=== PATIENT | female | born 2000 | race Caucasian/White ===

== ENCOUNTER 2021-02-26 12:37 | Emergency (ER) | payer OTHER ==
[~2021-02-26 12:37] MED LIST: COLACE 100MG C100 MG PO; FLINTSTONES1 EAC1 PO; IBUPROFEN600 MG PO; LORTAB 5-325 M1 EACH PO; PRENATAL FORMU1 EAC2 PO; REGLAN10 MG PO; TUMS ULTRA400 MG PO; ZOFRAN4 MG PO
[2021-02-26 13:39] LABS: RED BLOOD COUNT 5.56 M/UL (4.00-5.10); WHITE BLOOD COUNT 4.1 K/UL (4.5-11.0)
[2021-02-26 13:57] LABS: BUN/CREATININE RATIO 19 (0-10)
[2021-02-26] MEDS ORDERED: PHENERGAN 12.12.5 MG PR (16:32)
== END 2021-02-26 16:30 | disposition home or self-care (01) ==
LOC: ER1 12:37
PROVIDERS: Physician Assistant
DX: O21.0 Mild hyperemesis gravidarum (principal); Z79.899 Other long term (current) drug therapy; Z3A.01 Less than 8 weeks gestation of pregnancy
CPT/HCPCS: 80053; 81001; 85025; 96374; 99284; J2550; J7030

== ENCOUNTER 2021-03-02 12:22 | Observation (INO) | payer OTHER ==
[~2021-03-02] VITALS: Ht 154.9 cm; Wt 61.4 kg
[~2021-03-02 12:22] MED LIST changes: +PHENERGAN 12.12.5 MG PR
--- NOTE | 2021-03-02 16:27 | NUR ---
03/02/21 1620 CO NAUSEA MEDS GIVEN ORDERED. SMALL AMOUNT OF GREEN EMESIS NOTED
[2021-03-03] MEDS ORDERED: PHENERGAN 25 MG25 M1 PO (16:31)
[2021-03-03] MEDS ORDERED: TRANSDERM-SCOP1 EACH TOP (16:31)
[2021-03-03] MEDS ORDERED: PROTONIX 40 MG40 M1 PO (16:31)
[2021-03-03] MEDS ORDERED: PHENERGAN 12.12.5 MG PR (16:31)
[2021-03-03] MEDS ORDERED: ZOFRAN ODT 4 MG4 MG SL (16:31)
== END 2021-03-03 18:35 | disposition home or self-care (01) ==
LOC: MED SURG 4 12:22
PROVIDERS: ADMIT Obstetrics & Gynecology
DX: O21.1 Hyperemesis gravidarum with metabolic disturbance (principal); R63.4 Abnormal weight loss; Z20.822 Contact with and (suspected) exposure to COVID-19; Z3A.01 Less than 8 weeks gestation of pregnancy; Z88.0 Allergy status to penicillin
CPT/HCPCS: 96374; 96375; C9113; G0378; G0379; J2405; J2550; J7120; U0002

== ENCOUNTER 2021-03-20 09:36 | Inpatient (IN) | payer OTHER ==
[~2021-03-20] VITALS: Ht 154.9 cm; Wt 68.0 kg
[~2021-03-20 09:36] MED LIST changes: +PHENERGAN 25 MG25 M1 PO; +PROTONIX 40 MG40 M1 PO; +TRANSDERM-SCOP1 EACH TOP; +ZOFRAN ODT 4 MG4 MG SL
[2021-03-20 14:35] LABS: RED BLOOD COUNT 5.3 M/UL (4.00-5.10); WHITE BLOOD COUNT 10.9 K/UL (4.5-11.0)
[2021-03-20 14:59] LABS: BUN/CREATININE RATIO 21 (0-10)
[2021-03-21] MEDS ORDERED: ZOFRAN ODT 4 MG4 MG PO (12:42)
== END 2021-03-21 19:07 | disposition home or self-care (01) | DRG 832 ==
LOC: ER1 09:36 → CDU 17:40 → M/S 20:45
PROVIDERS: Emergency Medicine; ADMIT Obstetrics & Gynecology
DX: O21.1 Hyperemesis gravidarum with metabolic disturbance (principal); O23.41 Unspecified infection of urinary tract in pregnancy, first trimester; Z3A.09 9 weeks gestation of pregnancy; O99.611 Diseases of the digestive system complicating pregnancy, first trimester; K80.20 Calculus of gallbladder without cholecystitis without obstruction; O36.5910 Maternal care for other known or suspected poor fetal growth, first trimester, not applicable or unspecified; G43.909 Migraine, unspecified, not intractable, without status migrainosus; O99.351 Diseases of the nervous system complicating pregnancy, first trimester; R63.4 Abnormal weight loss; Z20.822 Contact with and (suspected) exposure to COVID-19; Z88.0 Allergy status to penicillin
CPT/HCPCS: 0240U; 76705; 80053; 81001; 85025; 87086; 96374; 96375; 99285; C9113; J0696; J2405; J2550; J7030

== ENCOUNTER 2021-03-30 17:21 | Inpatient (IN) | payer OTHER ==
[~2021-03-30] VITALS: Ht 154.9 cm; Wt 58.5 kg
[~2021-03-30 17:21] MED LIST changes: +ZOFRAN ODT 4 MG4 MG PO
[2021-03-30] MEDS ORDERED: ZOFRAN 4 MG TAB4 MG PO (18:57)
[2021-03-30] MEDS ORDERED: COLACE 100MG C100 MG PO (18:59)
[2021-03-30] MEDS ORDERED: MIRALAX17 GM PO (18:59)
[2021-03-30 20:07] LABS: HEMOGLOBIN 15.1 gm/dl (12.3-15.3); RED BLOOD COUNT 5.3 M/UL (4.00-5.10); WHITE BLOOD COUNT 11.2 K/UL (4.5-11.0)
[2021-03-30 20:56] LABS: BUN/CREATININE RATIO 18 (0-10)
[2021-04-04 09:45] LABS: BUN/CREATININE RATIO 12 (0-10)
[2021-04-04] MEDS ORDERED: PREDNISONE10 MG PO (12:48)
== END 2021-04-04 19:00 | disposition home or self-care (01) | DRG 832 ==
LOC: M/S 17:21
PROVIDERS: Obstetrics & Gynecology; ADMIT Obstetrics & Gynecology
DX: O21.0 Mild hyperemesis gravidarum (principal); O23.41 Unspecified infection of urinary tract in pregnancy, first trimester; Z3A.10 10 weeks gestation of pregnancy; O36.8310 Maternal care for abnormalities of the fetal heart rate or rhythm, first trimester, not applicable or unspecified; O99.281 Endocrine, nutritional and metabolic diseases complicating pregnancy, first trimester; E87.6 Hypokalemia; Z20.822 Contact with and (suspected) exposure to COVID-19
CPT/HCPCS: 36415; 80048; 80053; 81001; 82150; 83690; 84132; 85027; 96374; 96375; 96376; C9113; G0378; G0379; J0696; J1720; J2405; J3480; J7050; J7121